=== PATIENT | male | born 1955 | race Two or more races ===

== ENCOUNTER 2017-03-08 19:14 | Emergency (ER) | payer OTHER ==
--- NOTE | 2017-03-08 21:34 | EDPHY ---
H & P Time Seen by Provider: 03/08/17 19:46 HPI/ROS: CHIEF COMPLAINT: Right foot pain HISTORY OF PRESENT ILLNESS: 62-year-old male presents emergency department with his daughter complaining of acute on chronic right foot pain. Patient had a right foot surgery with tendon repair 9 years ago after a injury at work. The patient reports he intermittent pain and swelling with increase use of this foot. This past weekend he reports walking a further distance than usual which has increased his pain and swelling. He denies fevers or chills, no numbness or tingling to this foot, no other complaints. Smoking Status: Former smoker Physical Exam: GEN: Awake, alert, oriented, no acute distress, vital signs reviewed, temperature 36.9degrees RESP: nl resp effort MSK: Dorsal aspect of right foot with swelling and tenderness, no erythema, 2+ pedal pulses, sensation intact to light touch, no ankle swelling or tenderness, no tenderness to base of 5th metatarsal SKIN: No break in skin Constitutional: Initial Vital Signs Heart Rate 79 03/08/17 19:32 Respiratory Rate 20 03/08/17 19:32 Blood Pressure 142/79 H 03/08/17 19:32 O2 Sat (%) 92 03/08/17 19:32 O2 Delivery Mode Room Air Allergies/Adverse Reactions: No Known Allergies Allergy (Unverified 12/18/13 19:04) Home Medications: Medication Instructions Recorded Metformin HCl [Metformin 1000 mg] 1,000 mg PO BID 02/13/14 Insulin Glargine [Lantus 100 30 units SC HS 02/14/14 UNITS/ML (*)] Lisinopril/Hctz 20/12.5MG 1 ea PO DAILY 02/14/14 [Zestoretic/Prinzide 20/12.5MG (*)] MDM/Departure - MDM Imaging Results: Imaging Impressions Foot X-Ray 03/08/17 20:08 Impression: No acute osseous abnormality. 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 Imaging: I viewed and interpreted images myself - Depart Disposition: Home, Routine, Self-Care Clinical Impression: Right foot pain Condition: Good Instructions: Arthralgia (ED) Additional Instructions: Rest, ice, elevate. Use crutches as needed. Take 400mg of ibuprofen every 8 hours with food for 3 days. Follow up with the insurance claims specialist at first available appointment. Call in the morning to schedule this. Referrals: Shelly Solano [Doctor of Podiatric Medicine] - As per Instructions ([employer] director [employer])
[2017-03-08 21:48] VITALS: BP 170/100; PULSE 77; RESP 16; TEMP 97.7; O2SAT 96
== END 2017-03-08 21:46 | disposition home or self-care (01) ==
DX: M79.671 Pain in right foot (principal); Z87.891 Personal history of nicotine dependence